=== PATIENT | male | born 1995 | race Caucasian/White ===

== ENCOUNTER 2020-01-27 02:12 | Observation (INO) | payer MEDICAID, OTHER ==
[2020-01-27] MEDS ORDERED: LORazepam 2 MG/ML INJ IV STA (02:39)
[2020-01-27 02:59] LABS: Amphetamine Screen,Urine Not Detected (NotDetected); Barbiturate Screen,Urine Not Detected (NotDetected); Benzodiazepines Screen,Urine Not Detected (NotDetected); Cocaine Screen,Urine Not Detected (NotDetected); Methadone Screen, Urine Not Detected (NotDetected); Opiate Screen,Urine Not Detected (NotDetected); Oxycodone Screen, Urine Not Detected (NotDetected); Phencyclidine Screen,Urine Not Detected (NotDetected); Tricyclic Antidepressant,Urine Not Detected (NotDetected); Urn Cannabinoid Scrn Detected (NotDetected)
[2020-01-27 03:01] LABS: Basophils % (A) 0 %; Eosinophils # (A) 0.2 k/uL (0-0.7); Eosinophils % (A) 3 %; HCT 45.6 % (39.0-53.0); HGB 15.7 gm/dL (13.0-17.5); Lymphocytes # (A) 1.7 k/uL (1.0-4.8); Lymphocytes % (A) 25 %; MCH 32.8 pg (25.0-35.0); MCHC 34.5 g/dL (31.0-37.0); MCV 95.2 fL (80.0-100.0); Mean Platelet Volume 6.8; Monocytes # (A) 0.4 k/uL (0-1.0); Monocytes % (A) 5 %; Neutrophils # (A) 4.5 k/uL (1.3-7.7); Neutrophils % (A) 65 %; Platelet Count 233 k/uL (150-450); RBC 4.79 m/uL (4.30-5.90); RDW 12.5 % (11.5-15.5)
--- NOTE | 2020-01-27 03:05 | ED ---
General Adult HPI - General Chief complaint: Psychiatric Symptoms Stated complaint: Mental health, petition Source: patient, police Mode of arrival: ambulatory Limitations: no limitations - History of Present Illness Initial comments: The patient is a 24-year-old male with no past medical history presents to the emergency department accompanied by police. They were called to the patient's house by the patient's girlfriend. The 2 of them had been drinking a significant amount of alcohol. The patient reports to daily drinking. The girlfriend stated that the patient was making suicidal statements. Police then escorted him to the hospital. He reported to them that he will occasionally feel suicidal however denied active suicidal ideations. He denies suicidal ideations to us. He is petitioned by police. Patient denies homicide ideations or hallucinations. Denies drug use other than marijuana. Patient denies previous history of mental illness does not see a counselor. Patient does not disclose how much he drank today other than saying "a lot". Reports that his alcohol abuse is so heavy that he has had withdrawals previously. Denies withdrawal seizures. There are no other alleviating, precipitating or modifying factors - Related Data Allergies Allergy/AdvReac Type Severity Reaction Status Date / Time No Known Allergies Allergy Verified 01/27/20 02:20 Review of Systems ROS Statement: Those systems with pertinent positive or pertinent negative responses have been documented in the HPI. ROS Other: All systems not noted in ROS Statement are negative. Past Medical History Past Medical History: No Reported History History of Any Multi-Drug Resistant Organisms: None Reported Past Surgical History: No Surgical Hx Reported Past Psychological History: Anxiety, Depression Smoking Status: Current every day smoker Past Alcohol Use History: Heavy Past Drug Use History: Marijuana General Exam Limitations: no limitations Course Vital Signs 01/27/20 01/27/20 02:15 04:32 Temperature 98 F 97.5 F L Pulse Rate 91 74 Respiratory 20 17 Rate Blood Pressure 147/112 110/47 O2 Sat by Pulse 97 94 L Oximetry Medical Decision Making - Medical Decision Making Upon arrival the patient was placed into room 13. A thorough history and physical exam was performed. Peripheral IV was established and the patient was started on normal saline. Laboratory studies demonstrate a serum alcohol of 337. THC is detected in the urine. Coronavirus is not detected. The patient is petitioned by police. Due to his high alcohol level I did admit the patient the hospital. Discussed the case with Dr. Flores who accepted admission. Patient will be placed on [facility] protocol for alcohol withdrawal. I will consult psychiatry. The patient remained in stable condition was transported to the floor. He did require 2 mg of IV Ativan were his agitation - Lab Data Result diagrams: 01/27/20 02:53 01/27/20 02:53 Lab Results 01/27/20 01/27/20 01/27/20 Range/Units 02:26 02:53 02:53 WBC 7.0 (3.8-10.6) k/uL RBC 4.79 (4.30-5.90) m/uL Hgb 15.7 (13.0-17.5) gm/dL Hct 45.6 (39.0-53.0) % MCV 95.2 (80.0-100.0) fL MCH 32.8 (25.0-35.0) pg MCHC 34.5 (31.0-37.0) g/dL RDW 12.5 (11.5-15.5) % Plt Count 233 (150-450) k/uL Neutrophils % 65 % Lymphocytes % 25 % Monocytes % 5 % Eosinophils % 3 % Basophils % 0 % Neutrophils # 4.5 (1.3-7.7) k/uL Lymphocytes # 1.7 (1.0-4.8) k/uL Monocytes # 0.4 (0-1.0) k/uL Eosinophils # 0.2 (0-0.7) k/uL Basophils # 0.0 (0-0.2) k/uL Sodium 136 L (137-145) mmol/L Potassium 4.7 (3.5-5.1) mmol/L Chloride 106 (98-107) mmol/L Carbon Dioxide 24 (22-30) mmol/L Anion Gap 6 mmol/L BUN 11 (9-20) mg/dL Creatinine 0.82 (0.66-1.25) mg/dL Est GFR (CKD-EPI)AfAm >90 (>60 ml/min/1.73 sqM) Est GFR (CKD-EPI)NonAf >90 (>60 ml/min/1.73 sqM) Glucose 118 H (74-99) mg/dL Calcium 9.5 (8.4-10.2) mg/dL Total Bilirubin 0.5 (0.2-1.3) mg/dL AST 78 H (17-59) U/L ALT 33 (4-49) U/L Alkaline Phosphatase 111 (38-126) U/L Total Protein 8.3 H (6.3-8.2) g/dL Albumin 4.9 (3.5-5.0) g/dL Urine Opiates Screen Not Detected (NotDetected) Ur Oxycodone Screen Not Detected (NotDetected) Urine Methadone Screen Not Detected (NotDetected) Ur Propoxyphene Screen Not Detected (NotDetected) Ur Barbiturates Screen Not Detected (NotDetected) U Tricyclic Antidepress Not Detected (NotDetected) Ur Phencyclidine Scrn Not Detected (NotDetected) Ur Amphetamines Screen Not Detected (NotDetected) U Methamphetamines Scrn Not Detected (NotDetected) U Benzodiazepines Scrn Not Detected (NotDetected) Urine Cocaine Screen Not Detected (NotDetected) U Marijuana (THC) Screen Detected H (NotDetected) Serum Alcohol 337 H* mg/dL Coronavirus (PCR) (Not Detectd) 01/27/20 Range/Units 03:22 WBC (3.8-10.6) k/uL RBC (4.30-5.90) m/uL Hgb (13.0-17.5) gm/dL Hct (39.0-53.0) % MCV (80.0-100.0) fL MCH (25.0-35.0) pg MCHC (31.0-37.0) g/dL RDW (11.5-15.5) % Plt Count (150-450) k/uL Neutrophils % % Lymphocytes % % Monocytes % % Eosinophils % % Basophils % % Neutrophils # (1.3-7.7) k/uL Lymphocytes # (1.0-4.8) k/uL Monocytes # (0-1.0) k/uL Eosinophils # (0-0.7) k/uL Basophils # (0-0.2) k/uL Sodium (137-145) mmol/L Potassium (3.5-5.1) mmol/L Chloride (98-107) mmol/L Carbon Dioxide (22-30) mmol/L Anion Gap mmol/L BUN (9-20) mg/dL Creatinine (0.66-1.25) mg/dL Est GFR (CKD-EPI)AfAm (>60 ml/min/1.73 sqM) Est GFR (CKD-EPI)NonAf (>60 ml/min/1.73 sqM) Glucose (74-99) mg/dL Calcium (8.4-10.2) mg/dL Total Bilirubin (0.2-1.3) mg/dL AST (17-59) U/L ALT (4-49) U/L Alkaline Phosphatase (38-126) U/L Total Protein (6.3-8.2) g/dL Albumin (3.5-5.0) g/dL Urine Opiates Screen (NotDetected) Ur Oxycodone Screen (NotDetected) Urine Methadone Screen (NotDetected) Ur Propoxyphene Screen (NotDetected) Ur Barbiturates Screen (NotDetected) U Tricyclic Antidepress (NotDetected) Ur Phencyclidine Scrn (NotDetected) Ur Amphetamines Screen (NotDetected) U Methamphetamines Scrn (NotDetected) U Benzodiazepines Scrn (NotDetected) Urine Cocaine Screen (NotDetected) U Marijuana (THC) Screen (NotDetected) Serum Alcohol mg/dL Coronavirus (PCR) Not Detected (Not Detectd) Disposition Clinical Impression: Depression, Alcohol intoxication Disposition: ADMITTED IP TO THIS [facility] Condition: Stable Is patient prescribed a controlled substance at d/c from ED?: No Decision to Admit Reason: Admit from EC Decision Date: 01/27/20 Decision Time: 03:42
[2020-01-27 03:11] LABS: African American GFR (CKD) >90 (>60 ml/min/1.73 sqM); Albumin 4.9 g/dL (3.5-5.0); Anion Gap 6 mmol/L; Calcium 9.5 mg/dL (8.4-10.2); Carbon Dioxide 24 mmol/L (22-30); Chloride 106 mmol/L (98-107); Glucose 118 mg/dL (74-99); Non-African American GFR(CKD) >90 (>60 ml/min/1.73 sqM); Sodium 136 mmol/L (137-145); Total Bilirubin 0.5 mg/dL (0.2-1.3); Total Protein 8.3 g/dL (6.3-8.2)
[2020-01-27 03:22] LABS: ALT 33 U/L (4-49); AST 78 U/L (17-59); Alcohol 337 mg/dL; Alkaline Phosphatase 111 U/L (38-126); Blood Urea Nitrogen 11 mg/dL (9-20); Potassium 4.7 mmol/L (3.5-5.1)
[2020-01-27] MEDS ORDERED: NALOXONE 0.4 MG/ML 1 ML VIAL IV PRN (03:43)
[2020-01-27] MEDS ORDERED: LORazepam 2 MG/ML INJ IV PRN ×3 (03:46)
[2020-01-27] MEDS ORDERED: THIAMINE 100 MG/ML 2 ML VIAL IM STA (03:46)
[2020-01-27] MEDS: SODIUM CHLORIDE 0.9% 1,000 ML IV SCH ×2 (04:23→11:30)
--- NOTE | 2020-01-27 05:15 | P.HPIM ---
History of Present Illness H&P Date: 01/27/20 The patient is a 24 yo M with a PMH of EtOH abuse, depression, and anxiety who was brought in to the ED under police custody for suicidal ideation. Unable to obtain history from patient as he was sleeping, would wake up and say "stop" with stimuli. As per the ED documentation, the patient had been drinking excessively with his girlfriend when he expressed his suicidal ideation to her. She subsequently contacted EMS who brought the patient to the ED. The patient had denied homicidal or suicidal ideation as per ED documentation. The patient had reported a significant history of alcohol abuse, though refused to give specific amounts. He had endorsed history of withdrawals though had denied wit hdrawal seizure. The patient had undergone an extensive evaluation in the emergency room with an alcohol level of 337, coronavirus negative, urine toxicology positive for marijuana, WBC count 7.0, hemoglobin 15.7, platelets 233, sodium 136, potassium 4.7, glucose 118, AST 78, ALT 33, BUN 11, and cr eatinine 0.82. Review of Systems Pertinent positives and negatives as discussed in HPI, a complete review of systems was performed and all other systems are negative. Past Medical History Past Medical History: No Reported History History of Any Multi-Drug Resistant Organisms: None Reported Past Surgical History: No Surgical Hx Reported Past Psychological History: Anxiety, Depression Smoking Status: Current every day smoker Past Alcohol Use History: Heavy Past Drug Use History: Marijuana Medications and Allergies Allergies Allergy/AdvReac Type Severity Reaction Status Date / Time No Known Allergies Allergy Verified 01/27/20 02:20 Physical Exam Vitals: Vital Signs Temp Pulse Resp BP Pulse Ox 01/27/20 04:32 97.5 F L 74 17 110/47 94 L 01/27/20 02:15 98 F 91 20 147/112 97 Intake and Output 01/26/20 01/26/20 01/27/20 14:59 22:59 06:59 Other: Weight 92.533 kg General: Disheveled M, in no acute distress, appears stated age Derm: no unusual rashes/lesions no unusual ecchymoses, warm, dry Head: atraumatic, normocephalic, symmetric Eyes: Anicteric sclera, pupils equal round reactive to light ENT: Nose and ears atraumatic Neck: No thyromegaly, no cervical lymphadenopathy, trachea midline, supple Mouth: no lip lesion, mucus membranes dry Cardiovascular: S1S2 reg, no murmur, positive posterior tibial pulse bilateral, no edema, capillary refill less than 2 seconds Lungs: CTA bilateral, no rhonchi, no rales , no accessory muscle use Abdominal: soft, no guarding, no appreciable organomegaly Ext: no gross muscle atrophy, opens eyes to noxious stimuli, moving all extremities Neuro: Opens eyes, moving all extremities, yelled "stop" upon stimuli Psych: Sleeping, unable to perform Results CBC & Chem 7: 01/27/20 02:53 01/27/20 02:53 Labs: Abnormal Lab Results - Last 24 Hours (Table) 01/27/20 01/27/20 Range/Units 02:26 02:53 Sodium 136 L (137-145) mmol/L Glucose 118 H (74-99) mg/dL AST 78 H (17-59) U/L Total Protein 8.3 H (6.3-8.2) g/dL U Marijuana (THC) Screen Detected H (NotDetected) Serum Alcohol 337 H* mg/dL Assessment and Plan Plan: Alcohol intoxication, impending withdrawal -[facility] protocol -Thiamine, Folate, MV -Seizure, fall, aspiration precautions -Monitor electrolytes and replace accordingly Suicidal ideation -Psychiatry consult -1:1 observation for now -Suicide precautions Elevated AST -Likely due to EtOH abuse -Monitor for now DVT prophylaxis -Heparin subq The patient is admitted with an anticipated less than 2 midnight stay for evaluation of EtOH intoxication CODE STATUS: Full Code Anticipated discharge date: 1-[address]: Home A total of 35 minutes was spent on the care of this complex patient more than 50% of the time was spent in counseling and care coordination.
[2020-01-27 07:17] VITALS: BP 121/73; PULSE 89; RESP 18; TEMP 97.3
[2020-01-27] MEDS ORDERED: HEPARIN SODIUM,PORCINE 5,000 UNIT/ML 1 ML VIAL SQ SCH (08:00)
[2020-01-27] MEDS ORDERED: MULTIVITAMINS, THERA 1 EACH TAB PO SCH (09:00)
[2020-01-27] MEDS ORDERED: FOLIC ACID 1 MG TAB PO SCH (09:00)
[2020-01-27] MEDS ORDERED: NICOTINE 21MG/24HR PATCH TRANSDERM SCH (09:30)
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
--- NOTE | 2020-01-27 15:47 | P.DS ---
Providers Date of admission: 01/27/20 03:43 Expected date of discharge: 01/27/20 Attending physician: Justa Flores MD Consults: 01/27/20 03:45 Consult Physician Routine Consulting Provider: Geovany Chakraborty Consult Reason/Comments: alcohol intoxication, depression Do you want consulting provider notified?: Yes, Notify in am Primary care physician: Stated None Hospital Course: The patient is a 24 yo M with a PMH of EtOH abuse, depression, and anxiety who was brought in to the ED under police custody for suicidal ideation. Unable to obtain history from patient as he was sleeping, would wake up and say "stop" with stimuli. As per the ED documentation, the patient had been drinking excessively with his girlfriend when he expressed his suicidal ideation to her. She subsequently contacted EMS who brought the patient to the ED. The patient had denied homicidal or suicidal ideation as per ED documentation. The patient had reported a significant history of alcohol abuse, though refused to give specific amounts. He had endorsed history of withdrawals though had denied withdrawal seizure. The patient had undergone an extensive evaluation in the emergency room with an alcohol level of 337, coronavirus negative, urine toxicology positive for marijuana, WBC count 7.0, hemoglobin 15.7, platelets 233, sodium 136, potassium 4.7, glucose 118, AST 78, ALT 33, BUN 11, and cre atinine 0.82. Patient was placed on [facility] protocol and given Ativan as needed. He was started on thiamine, folic acid and multivitamin. He was placed on seizure, fall and aspiration precautions. He was placed on one-to-one sitter. Psychiatry was consulted for suicidal ideation and cleared the patient for discharge. He did have a transaminitis that was thought to be related to alcohol abuse. Patient was seen and examined. No acute events overnight. Patient with no complaints. He denies any suicidal homicidal ideation. Patient is in no acute distress. He is alert and oriented 3. Discharge diagnosis: Alcohol intoxication Suicidal ideation Elevated AST Marijuana use DVT prophylaxis Patient is advised against alcohol consumption. He is to follow-up with psychiatry in the outpatient setting. Patient verbalized understanding of the plan. Patient Condition at Discharge: Stable Plan - Discharge Summary Discharge Rx Participant: No New Discharge Prescriptions: No Action No Known Home Medications Discharge Medication List No Known Home Medications 01/27/20 [History] Follow up Appointment(s)/Referral(s): Geovany Chakraborty MD [STAFF PHYSICIAN] - 1 Week (numbers given for [facility] for outpatient services) None,Stated [Primary Care Provider] - 1-2 days Patient Instructions/Handouts: Depression (DC), Alcohol Intoxication (DC) Activity/Diet/Wound Care/Special Instructions: Please refrain from drinking alcohol. Come back to the ED for suicidal or homicidal ideations. FU with Psychiatry within 1 week of DC. Discharge Disposition: HOME SELF-CARE
[2020-01-27] MEDS ORDERED: THIAMINE 100 MG TAB PO SCH (17:30)
== END 2020-01-27 15:02 | disposition home or self-care (01) ==
LOC: EC 02:12 → 5NMEDONC 03:43
PROVIDERS: ADMIT Internal Medicine; ATTEND Internal Medicine
DX: F10.239 Alcohol dependence with withdrawal, unspecified (principal); F12.90 Cannabis use, unspecified, uncomplicated; F17.200 Nicotine dependence, unspecified, uncomplicated; F32.9 Major depressive disorder, single episode, unspecified; F41.9 Anxiety disorder, unspecified; R45.851 Suicidal ideations; Z11.59 Encounter for screening for other viral diseases; R74.0 Nonspecific elevation of levels of transaminase and lactic acid dehydrogenase [LDH]; Y90.8 Blood alcohol level of 240 mg/100 ml or more; F10.229 Alcohol dependence with intoxication, unspecified
CPT/HCPCS: 96376; 96372 ×2; 82075; 96374; 99285; 36415; 80053; 85025; 80306; 80320; 87635; G0378; S4990; J2060; J1644; J3411

== ENCOUNTER 2023-05-30 10:44 | Inpatient (IN) | payer OTHER ==
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
[2023-05-30 13:22] LABS: Basophils % (A) 0 %; Eosinophils # (A) 0.2 k/uL (0-0.7); Eosinophils % (A) 3 %; HCT 47.2 % (39.0-53.0); HGB 16.2 gm/dL (13.0-17.5); Lymphocytes # (A) 1.4 k/uL (1.0-4.8); Lymphocytes % (A) 24 %; MCH 33.9 pg (25.0-35.0); MCHC 34.4 g/dL (31.0-37.0); MCV 98.6 fL (80.0-100.0); Monocytes # (A) 0.4 k/uL (0-1.0); Monocytes % (A) 7 %; Neutrophils # (A) 3.7 k/uL (1.3-7.7); Neutrophils % (A) 64 %; Platelet Count 186 k/uL (150-450); RBC 4.79 m/uL (4.30-5.90); WBC 5.7 k/uL (3.8-10.6)
[2023-05-30 13:34] LABS: ALT 104 U/L (4-49); AST 222 U/L (17-59); African American GFR (CKD) >90 (>60 ml/min/1.73 sqM); Albumin 4.9 g/dL (3.5-5.0); Alcohol 63 mg/dL; Alkaline Phosphatase 200 U/L (38-126); Anion Gap 13 mmol/L; Blood Urea Nitrogen 3 mg/dL (9-20); Calcium 9.9 mg/dL (8.4-10.2); Carbon Dioxide 24 mmol/L (22-30); Chloride 100 mmol/L (98-107); Glucose 103 mg/dL (74-99); Lipase 105 U/L (23-300); Magnesium 1.8 mg/dL (1.6-2.3); Non-African American GFR(CKD) >90 (>60 ml/min/1.73 sqM); Potassium 4.2 mmol/L (3.5-5.1); Sodium 137 mmol/L (137-145); Total Bilirubin 1.3 mg/dL (0.2-1.3); Total Protein 8.5 g/dL (6.3-8.2)
[2023-05-30] MEDS ORDERED: LORazepam 2 MG/ML INJ IV STA (13:36)
[2023-05-30] MEDS ORDERED: LORazepam 2 MG/ML INJ IV PRN (13:36)
[2023-05-30] MEDS ORDERED: THIAMINE 100 MG/ML 2 ML VIAL IM STA (13:36)
[2023-05-30] MEDS ORDERED: SODIUM CHLORIDE 0.9% 1,000 ML IV ONE (13:38)
[2023-05-30] MEDS: PANTOPRAZOLE 40 MG/10 ML VIAL IVP SCH (14:18)
[2023-05-30] MEDS: SODIUM CHLORIDE 0.9% 1,000 ML IV SCH (14:21)
[2023-05-30] MEDS ORDERED: NALOXONE 0.4 MG/ML 1 ML VIAL IV PRN (14:33)
[2023-05-30 15:28] LABS: Amphetamine Screen,Urine Not Detected (NotDetected); Barbiturate Screen,Urine Detected (NotDetected); Benzodiazepines Screen,Urine Not Detected (NotDetected); Cocaine Screen,Urine Not Detected (NotDetected); Methadone Screen, Urine Not Detected (NotDetected); Opiate Screen,Urine Not Detected (NotDetected); Oxycodone Screen, Urine Not Detected (NotDetected); Phencyclidine Screen,Urine Not Detected (NotDetected); Tricyclic Antidepressant,Urine Not Detected (NotDetected); Urn Cannabinoid Scrn Not Detected (NotDetected)
[2023-05-30] MEDS ORDERED: HYDROcodone/APAP 5-325MG 1 EACH TAB PO PRN (16:48)
[2023-05-30] MEDS ORDERED: ONDANSETRON 4 MG/2 ML VIAL IVP PRN (16:49)
[2023-05-30] MEDS ORDERED: METOCLOPRAMIDE 5 MG/ML 2 ML VIAL IVP PRN (16:49)
[2023-05-30] MEDS: chlordiazePOXIDE 25 MG CAP PO SCH ×2 (17:23→20:03)
[2023-05-30] MEDS: GABAPENTIN 300 MG CAP PO SCH ×2 (17:23→20:03)
[2023-05-30] MEDS: LORazepam 2 MG/ML INJ IV PRN ×3 (17:28→22:08)
[2023-05-31] MEDS: LORazepam 2 MG/ML INJ IV PRN ×7 (01:17→19:51)
[2023-05-31] MEDS: SODIUM CHLORIDE 0.9% 1,000 ML IV SCH ×2 (06:25→15:37)
[2023-05-31] MEDS: GABAPENTIN 300 MG CAP PO SCH ×3 (08:51→19:51)
[2023-05-31] MEDS: chlordiazePOXIDE 25 MG CAP PO SCH ×3 (08:51→19:51)
[2023-05-31] MEDS: PANTOPRAZOLE 40 MG/10 ML VIAL IVP SCH (08:51)
[2023-05-31] MEDS ORDERED: NICOTINE 21MG/24HR PATCH TRANSDERM SCH (09:00)
[2023-05-31] MEDS ORDERED: THIAMINE 100 MG TAB PO SCH (09:00)
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
[2023-05-31 11:34] LABS: Basophils % (A) 0 %; Eosinophils # (A) 0.3 k/uL (0-0.7); Eosinophils % (A) 6 %; HCT 41.4 % (39.0-53.0); Lymphocytes # (A) 1.3 k/uL (1.0-4.8); Lymphocytes % (A) 29 %; MCH 34.3 pg (25.0-35.0); MCHC 33.7 g/dL (31.0-37.0); MCV 101.7 fL (80.0-100.0); Macrocytosis Slight; Mean Platelet Volume 8.8; Monocytes # (A) 0.3 k/uL (0-1.0); Monocytes % (A) 6 %; Neutrophils # (A) 2.6 k/uL (1.3-7.7); Neutrophils % (A) 58 %; Platelet Count 125 k/uL (150-450); RBC 4.07 m/uL (4.30-5.90); RDW 13.4 % (11.5-15.5); WBC 4.5 k/uL (3.8-10.6)
[2023-05-31 13:12] LABS: ALT 66 U/L (4-49); AST 107 U/L (17-59); African American GFR (CKD) >90 (>60 ml/min/1.73 sqM); Albumin 3.7 g/dL (3.5-5.0); Alkaline Phosphatase 136 U/L (38-126); Anion Gap 7 mmol/L; Blood Urea Nitrogen 5 mg/dL (9-20); Calcium 9.1 mg/dL (8.4-10.2); Carbon Dioxide 25 mmol/L (22-30); Chloride 104 mmol/L (98-107); Glucose 116 mg/dL (74-99); Magnesium 1.6 mg/dL (1.6-2.3); Non-African American GFR(CKD) >90 (>60 ml/min/1.73 sqM); Potassium 3.7 mmol/L (3.5-5.1); Sodium 136 mmol/L (137-145); Total Bilirubin 1.3 mg/dL (0.2-1.3); Total Protein 6.7 g/dL (6.3-8.2)
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
[2023-05-31 21:52] VITALS: RESP 18; TEMP 99
[2023-06-01] MEDS: LORazepam 2 MG/ML INJ IV PRN ×2 (00:11→06:15)
[2023-06-01 02:01] VITALS: BP 122/70; PULSE 77
[2023-06-01] MEDS: SODIUM CHLORIDE 0.9% 1,000 ML IV SCH (06:55)
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
== END 2023-06-01 07:58 | disposition home or self-care (01) | DRG 775 ==
LOC: EC 10:44 → 4SSUR 14:34 → 3SCARD 16:43 → 4SSUR 05-31 21:50
PROVIDERS: ADMIT Internal Medicine; ATTEND Internal Medicine
DX: F10.231 Alcohol dependence with withdrawal delirium (principal); F17.200 Nicotine dependence, unspecified, uncomplicated; F32.A Depression, unspecified; F41.9 Anxiety disorder, unspecified; Z89.511 Acquired absence of right leg below knee; Z91.148 Patient's other noncompliance with medication regimen for other reason
CPT/HCPCS: 36415; 80053; 80306; 80320; 83690; 83735; 85025; 96361; 96372; 96374; 96375; 96376; 99285

== ENCOUNTER 2023-10-16 15:14 | Inpatient (IN) | payer OTHER ==
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
[2023-10-16 17:09] LABS: Basophils % (A) 1 %; Eosinophils # (A) 0.1 k/uL (0-0.7); Eosinophils % (A) 2 %; HCT 46.8 % (39.0-53.0); HGB 15.7 gm/dL (13.0-17.5); Lymphocytes # (A) 1.6 k/uL (1.0-4.8); Lymphocytes % (A) 29 %; MCH 32.1 pg (25.0-35.0); MCHC 33.5 g/dL (31.0-37.0); MCV 95.8 fL (80.0-100.0); Mean Platelet Volume 7.4; Monocytes # (A) 0.3 k/uL (0-1.0); Monocytes % (A) 6 %; Neutrophils # (A) 3.5 k/uL (1.3-7.7); Neutrophils % (A) 61 %; Platelet Count 219 k/uL (150-450); RBC 4.89 m/uL (4.30-5.90); RDW 14.7 % (11.5-15.5); WBC 5.7 k/uL (3.8-10.6)
[2023-10-16 17:15] LABS: ALT 143 U/L (4-49); AST 198 U/L (17-59); African American GFR (CKD) >90 (>60 ml/min/1.73 sqM); Albumin 4.8 g/dL (3.5-5.0); Alkaline Phosphatase 147 U/L (38-126); Amylase 55 U/L (30-110); Anion Gap 13 mmol/L; Blood Urea Nitrogen 6 mg/dL (9-20); Calcium 9.7 mg/dL (8.4-10.2); Carbon Dioxide 26 mmol/L (22-30); Chloride 104 mmol/L (98-107); Glucose 97 mg/dL (74-99); Lipase 92 U/L (23-300); Non-African American GFR(CKD) >90 (>60 ml/min/1.73 sqM); Potassium 3.9 mmol/L (3.5-5.1); Sodium 143 mmol/L (137-145); Total Bilirubin 0.6 mg/dL (0.2-1.3); Total Protein 8.3 g/dL (6.3-8.2)
[2023-10-16 17:20] LABS: Alcohol 287 mg/dL
[2023-10-16] MEDS ORDERED: LORazepam 2 MG/ML INJ IV PRN (19:22)
[2023-10-16] MEDS ORDERED: THIAMINE 100 MG/ML 2 ML VIAL IM STA (19:22)
[2023-10-16] MEDS ORDERED: NALOXONE 0.4 MG/ML 1 ML VIAL IV PRN (19:22)
[2023-10-16] MEDS ORDERED: SODIUM CHLORIDE 0.9% 500 ML 500 ML IV STA (19:22)
[2023-10-16] MEDS ORDERED: SODIUM CHLORIDE 0.9% 1,000 ML IV STA (19:22)
[2023-10-16] MEDS: LORazepam 2 MG/ML INJ IV PRN ×3 (20:36→23:18)
[2023-10-16] MEDS ORDERED: GABAPENTIN 300 MG CAP PO PRN (21:32)
[2023-10-16] MEDS: SODIUM CHLORIDE 0.9% 1,000 ML IV SCH (21:41)
[2023-10-16 23:58] LABS: Appearance,Urine Clear (Clear); Bilirubin,Urine Negative (Negative); Blood,Urine Negative (Negative); Color,Urine Light Yellow; Glucose,Urine (UA) Negative (Negative); Ketones,Urine Negative (Negative); Leukocyte Esterase,Urine Negative (Negative); Nitrite,Urine Negative (Negative); PH, Urine 6.5 (5.0-8.0); Protein,Urine Negative (Negative); Specific Gravity,Urine 1.012 (1.001-1.035); Urobilinogen,Urine <2.0 mg/dL (<2.0)
[2023-10-17] MEDS: LORazepam 2 MG/ML INJ IV PRN ×8 (01:44→23:30)
[2023-10-17] MEDS: SODIUM CHLORIDE 0.9% 1,000 ML IV SCH ×3 (03:09→19:46)
[2023-10-17] MEDS: ONDANSETRON 4 MG/2 ML VIAL IVP PRN (04:54)
--- NOTE | 2023-10-17 08:18 | US ---
EXAMINATION TYPE: US liver DATE OF EXAM: 10/17/2023 COMPARISON: Same day CT CLINICAL INDICATION: Male, 27 years old with history of lft elevation; Elevated LFT's, ETOH abuse, GB surgically absent TECHNIQUE: Multiple sonographic images of the right upper quadrant are obtained. FINDINGS: EXAM MEASUREMENTS: Liver Length: 21.3 cm CBD: 0.4 cm Right Kidney: 11.9 x 4.6 x 4.9 cm GEAR GENERATOR SET UP OPERATOR NOTES: Pancreas: Obscured by bowel gas Liver: Enlarged, heterogeneous Gallbladder: Surgically absent Evidence for sonographic Nowak's sign: No CBD: wnl Right Kidney: wnl, lower pole gassed out IMPRESSION: 1. Hepatomegaly with findings suggestive of underlying hepatocellular disease correlate clinically. 2. Postcholecystectomy.
[2023-10-17 09:04] LABS: Basophils # (A) 0.03 X 10*3/uL (0.00-0.10); Basophils % (A) 0.7 %; Eosinophils # (A) 0.18 X 10*3/uL (0.04-0.35); Eosinophils % (A) 4.4 %; HGB 12.7 g/dL (13.0-17.0); Lymphocytes # (A) 1.79 X 10*3/uL (0.90-5.00); Lymphocytes % (A) 44.1 %; MCH 31.3 pg (27.0-32.0); MCHC 33.4 g/dL (32.0-37.0); MCV 93.6 FL (80.0-97.0); Mean Platelet Volume 9.4 FL (9.5-12.2); Monocytes # (A) 0.52 X 10*3/uL (0.20-1.00); Monocytes % (A) 12.8 %; NRBC Per 100 WBC 0 X 10*3/uL (0.00-0.01); Neutrophils # (A) 1.53 X 10*3/uL (1.80-7.70); Neutrophils % (A) 37.8 %; Platelet Count 169 X 10*3/uL (140-440); RBC 4.06 X 10*6/uL (4.40-5.60); RDW 14.8 % (11.5-14.5); WBC 4.06 X 10*3/uL (4.50-10.00)
[2023-10-17] MEDS: THIAMINE 100 MG TAB PO SCH (09:40)
[2023-10-17] MEDS: MULTIVITAMINS, THERA 1 EACH TAB PO SCH (09:40)
[2023-10-17] MEDS: APIXABAN 5 MG TAB PO SCH ×2 (09:40→20:35)
[2023-10-17] MEDS: FOLIC ACID 1 MG TAB PO SCH (09:40)
[2023-10-17] MEDS: DULoxetine HCL 30 MG CAPSULE.DR PO SCH (09:40)
[2023-10-17] MEDS: PANTOPRAZOLE 40 MG/10 ML VIAL IV SCH (09:43)
[2023-10-17] MEDS: NON FORMULARY DRUG (Buprenorphine/Naloxone 8mg/2mg 1 EACH Film) SUBLINGUAL SCH ×2 (09:43→22:30)
[2023-10-17 10:44] LABS: ALT 103 U/L (10-49); AST 121 U/L (14-35); Albumin 3.7 g/dL (3.8-4.9); Albumin/Globulin Ratio 1.68 Ratio (1.60-3.17); Alkaline Phosphatase 118 U/L (41-126); BUN/Creat Ratio 12.17 Ratio (12.00-20.00); Blood Urea Nitrogen 7.3 mg/dL (9.0-27.0); Calcium 8.9 mg/dL (8.7-10.3); Carbon Dioxide 24.3 mmol/L (21.6-31.8); Chloride 104 mmol/L (96-109); Globulin 2.2 g/dL (1.6-3.3); Glucose 101 mg/dL (70-110); Magnesium 1.6 mg/dL (1.5-2.4); Phosphorus 4.3 mg/dL (2.4-5.1); Potassium 4.1 mmol/L (3.5-5.5); Sodium 140 mmol/L (135-145); Total Bilirubin 0.6 mg/dL (0.3-1.2); Total Protein 5.9 g/dL (6.2-8.2)
[2023-10-18] MEDS: LORazepam 2 MG/ML INJ IV PRN ×2 (04:31→09:28)
[2023-10-18 04:55] VITALS: TEMP 98
[2023-10-18] MEDS: FOLIC ACID 1 MG TAB PO SCH (09:19)
[2023-10-18] MEDS: MULTIVITAMINS, THERA 1 EACH TAB PO SCH (09:19)
[2023-10-18] MEDS: APIXABAN 5 MG TAB PO SCH (09:19)
[2023-10-18] MEDS: DULoxetine HCL 30 MG CAPSULE.DR PO SCH (09:19)
[2023-10-18] MEDS: THIAMINE 100 MG TAB PO SCH (09:19)
[2023-10-18] MEDS: PANTOPRAZOLE 40 MG/10 ML VIAL IV SCH (09:20)
[2023-10-18] MEDS: SODIUM CHLORIDE 0.9% 1,000 ML IV SCH ×2 (09:31→10:25)
[2023-10-18] MEDS: NON FORMULARY DRUG (Buprenorphine/Naloxone 8mg/2mg 1 EACH Film) SUBLINGUAL SCH (09:31)
[2023-10-18 09:38] VITALS: RESP 18
[2023-10-18] MEDS: ONDANSETRON 4 MG/2 ML VIAL IVP PRN (11:34)
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
[2023-10-18 14:59] VITALS: BP 148/94; PULSE 61
--- NOTE | 2023-10-18 22:20 | PN ---
PROGRESS NOTE DATE OF SERVICE: 10/17/2023 SUBJECTIVE: He has been seen by a psychiatrist on 10/17/2023. He is still going through heavy DTs, he is shaking profusely. Discussed he wants to get off the Subutex and go on something for anxiety. Possibly Psychiatry is going to do this. Otherwise, we will continue him on CIWA protocol. OBJECTIVE: CARDIOVASCULAR: S1, S2. LUNGS: Clear. EXTREMITIES: He has below-knee amputation on the right. NEUROLOGIC: [id number] tremor. Continue current treatment for DTs, psych seen him for anxiety and depression, possibly wean down Subutex, gave him anxiety medicines if psych agrees. Prognosis guarded. MMODL / IJN: [id number] /
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
== END 2023-10-18 16:00 | disposition left against medical advice (07) | DRG 770 ==
LOC: EC 15:14 → 4SSUR 19:24
PROVIDERS: ADMIT Family Medicine; ATTEND Family Medicine
PROC: HZ2ZZZZ Detoxification Services for Substance Abuse Treatment (ICD-10-PCS; principal; 2023-10-16)
DX: F10.231 Alcohol dependence with withdrawal delirium (principal); F10.229 Alcohol dependence with intoxication, unspecified; E87.20 Acidosis, unspecified; E86.0 Dehydration; E66.01 Morbid (severe) obesity due to excess calories; F43.10 Post-traumatic stress disorder, unspecified; Z53.29 Procedure and treatment not carried out because of patient's decision for other reasons; R74.01 Elevation of levels of liver transaminase levels; F32.A Depression, unspecified; F17.210 Nicotine dependence, cigarettes, uncomplicated; Y90.8 Blood alcohol level of 240 mg/100 ml or more; R53.1 Weakness; I73.9 Peripheral vascular disease, unspecified; G47.30 Sleep apnea, unspecified; D64.9 Anemia, unspecified; Z68.25 Body mass index [BMI] 25.0-25.9, adult; Z71.41 Alcohol abuse counseling and surveillance of alcoholic; Z79.01 Long term (current) use of anticoagulants; Z89.511 Acquired absence of right leg below knee; Z90.49 Acquired absence of other specified parts of digestive tract; Z87.81 Personal history of (healed) traumatic fracture
CPT/HCPCS: 36415; 51798; 74176; 76705; 80053; 80320; 81003; 82150; 83605; 83690; 83735; 84100; 85025; 96361; 96372; 96374; 96375; 96376; 99285